=== PATIENT | male | born 1960 ===

== ENCOUNTER 2025-03-08 12:13 | Outpatient (CLI) | payer MEDICAID, SELFPAY ==
[2025-03-08 18:04] LABS: PSA, Screening 11.1 ng/mL (<=4.5)
== END 2025-03-08 12:14 | disposition home or self-care (01) ==
LOC: LBO 12:13
PROVIDERS: Visit Provider Nurse Practitioner Gerontology
DX: R39.9 Unspecified symptoms and signs involving the genitourinary system (principal)
CPT/HCPCS: 36415; 84153